=== PATIENT | female | born 1985 | race African-American/Black ===

== ENCOUNTER 2023-03-13 11:37 | Emergency (ER) | payer BC, MEDICAID ==
[~2023-03-13] VITALS: Ht 167.6 cm; Wt 73.0 kg
[2023-03-13] MEDS ORDERED: ACETAMINOPHEN 325MG TABLET PO ONE (12:45)
[2023-03-13] MEDS ORDERED: LIDOCAINE 5% PATCH TOP ONE (12:45)
[2023-03-13] MEDS ORDERED: MED4 MT (13:47)
[2023-03-13] MEDS ORDERED: IBUP-2029 MT (13:47)
[2023-03-13] MEDS ORDERED: BACL-141 MT (13:47)
[2023-03-13] MEDS ORDERED: KETOROLAC 30MG/ML VIAL IM NR (14:00)
[2023-03-13 14:20] VITALS: BP 129/78
== END 2023-03-13 14:21 | disposition home or self-care (01) ==
LOC: ER 11:37
DX: M62.830 Muscle spasm of back (principal); Z00.00 Encounter for general adult medical examination without abnormal findings
CPT/HCPCS: 81025; 99283

== ENCOUNTER 2023-12-20 12:00 | Emergency (ER) | payer MEDICAID ==
[~2023-12-20] VITALS: Ht 170.2 cm; Wt 84.0 kg
[~2023-12-20 12:00] MED LIST: BACL-141 MT; IBUP-2029 MT; MED4 MT
[2023-12-20 12:07] VITALS: TEMP 98.5; O2SAT 99
[2023-12-20 12:46] LABS: BASOPHILS % 0.7 % (0.0-2.0); EOSINOPHILS % 2.3 % (0.0-5.0); HEMATOCRIT. 29.3 % (36.0-48.0); HEMOGLOBIN. 8.9 g/dL (12.0-16.0); LYMPHOCYTES % 30.9 % (20.0-50.0); MEAN CORPUSCULAR HEMOGLOBIN 19.3 pg (28.0-32.0); MEAN CORPUSCULAR HGB CONC 30.2 g/dL (31.0-37.0); MEAN CORPUSCULAR VOLUME 63.9 fL (81.0-99.0); MEAN PLATELET VOLUME 8.5 fl (7.4-10.4); MONOCYTES % 8.6 % (2.0-8.0); NEUTROPHILS % 57.5 % (40.0-76.0); PLATELET 326 x1000/uL (130-400); RED BLOOD CELL COUNT 4.59 mill/uL (4.2-5.4); RED CELL DISTRIBUTION WIDTH 21.1 % (11.6-14.6); WHITE BLOOD COUNT 5.1 x1000/uL (4.5-11.0)
[2023-12-20 12:53] LABS: ADD RBC MORPHOLOGY YES; DIFFERENTIAL COMMENT 1
[2023-12-20 12:58] LABS: HCG SCREEN POSITIVE
[2023-12-20 13:07] LABS: ALANINE AMINOTRANSFERASE 8 IU/L (10-49); ALBUMIN 4.3 g/dL (3.2-4.8); ASPARTATE AMINOTRANSFERASE 13 IU/L (<34); BILIRUBIN TOTAL 0.4 mg/dL (0.1-1.0); CALCIUM 8.8 mg/dL (8.7-10.4); CARBON DIOXIDE 25 mEq/L (21-32); CHLORIDE 104 mEq/L (98-107); GLUCOSE 95 mg/dL (70-105); POTASSIUM 3.7 mEq/L (3.5-5.1); PROTEIN TOTAL 7.9 g/dL (6.0-8.3); SODIUM 137 mEq/L (136-145); UREA NITROGEN BLOOD 15 mg/dL (9-23)
[2023-12-20 13:23] LABS: ANISOCYTOSIS 2+; MICROCYTOSIS 2+
[2023-12-20 13:24] LABS: HYPOCHROMASIA 1+
[2023-12-20 13:53] LABS: CLARITY URINE CLEAR (CLEAR); COLOR URINE YELLOW (YELLOW); GLUCOSE URINE NEGATIVE (NEGATIVE); KETONES URINE NEGATIVE (NEGATIVE); LEUKOCYTE ESTERASE URINE TRACE (NEGATIVE); NITRITE URINE NEGATIVE (NEGATIVE); OCCULT BLOOD URINE 3+ (NEGATIVE); PH URINE 6.5 (4.5-8.0); PROTEIN URINE 1+ (NEGATIVE); SPECIFIC GRAVITY URINE 1.027 (1.005-1.030); UROBILINOGEN URINE 0.2 E.U./dL (0.2-1.0)
[2023-12-20 14:05] LABS: BACTERIA URINE TRACE; RBC URINE 25-50 /hpf (0-2); SQUAMOUS EPITHELIAL CELL URINE 1+ /lpf (RARE/1+); YEAST URINE NONE SEEN
[2023-12-20 14:14] LABS: PLATELET ESTIMATE NORMAL
[2023-12-20] MEDS ORDERED: CEPH500T MT (17:00)
[2023-12-20 17:22] VITALS: BP 126/79; PULSE 88; RESP 18
== END 2023-12-20 17:23 | disposition home or self-care (01) ==
LOC: ER 12:00
DX: O20.0 Threatened abortion (principal); Z3A.01 Less than 8 weeks gestation of pregnancy
CPT/HCPCS: 80053; 81003; 84703; 84702; 85025; 86850; 86900; 86901; 87210; 36415; 76801; 76817; 99284; Z7610 ×4

== ENCOUNTER 2025-02-14 10:28 | Emergency (ER) | payer MEDICAID ==
[~2025-02-14] VITALS: Ht 170.2 cm; Wt 73.0 kg
[~2025-02-14 10:28] MED LIST changes: +CEPH500T MT; -MED4 MT; +METH4TAB95 MT
[2025-02-14 10:39] VITALS: O2SAT 100
[2025-02-14] MEDS ORDERED: PSEU120T56 MT (11:04)
[2025-02-14] MEDS ORDERED: AM250 MT (11:04)
[2025-02-14 11:32] VITALS: BP 123/80; PULSE 97; RESP 14; TEMP 37; O2SAT 100
== END 2025-02-14 11:31 | disposition home or self-care (01) ==
LOC: ER 10:28
DX: J06.9 Acute upper respiratory infection, unspecified (principal); Z79.899 Other long term (current) drug therapy
CPT/HCPCS: 99283